=== PATIENT | male | born 1980 | race Caucasian/White ===

== ENCOUNTER → 2018-07-14 | Outpatient (CLI) | payer MEDICARE, MEDICAID ==
--- NOTE | 2018-07-14 13:52 | Diagnostic Imaging Report ---
INDICATION: Lifting injury at work. Lumbar spine. FINDINGS: AP and lateral views of the lumbar spine show mild degenerative disc changes at L1-L2 with slight disc space narrowing. Other intervertebral disc spaces are normal. There are no compression fractures. IMPRESSION: Mild degenerative disc changes at L1-2. Dictated by: Dictated on workstation # [id number]
== END ==
LOC: RAD 11:54
PROVIDERS: ATTEND Family Medicine
DX: S39.92XA Unspecified injury of lower back, initial encounter (principal); M51.36 Other intervertebral disc degeneration, lumbar region; X50.9XXA Other and unspecified overexertion or strenuous movements or postures, initial encounter
CPT/HCPCS: 72100

== ENCOUNTER → 2018-08-24 | Outpatient (CLI) | payer MEDICARE, MEDICAID | LOC: CARD 10:08 | PROVIDERS: ATTEND Nurse Practitioner Family | DX: I51.9 Heart disease, unspecified (principal); R79.89 Other specified abnormal findings of blood chemistry | CPT/HCPCS: 93306 ==

== ENCOUNTER 2019-03-26 12:53 | Emergency (ER) | payer MEDICARE, MEDICAID ==
[~2019-03-26] VITALS: Ht 175 cm; Wt 150.0 kg
--- NOTE | 2019-03-26 12:53 | NUR ---
PT TO ED 7 PER EMS POST CODE. PER EMS, PT WAS TALKING TO GIRLFRIEND ON PHONE WHEN BECAME UNRESPONSIVE. WITNESSED ARREST PER CAREGIVER. PER EMS, NO CPR WAS INITIATED FOR APPROX 5 MINUTES AFTER ARREST UNTIL PPD ARRIVED. PER EMS, UPON PLACING PT ON MONITOR, FOUND PT IN V FIB. SHOCK X1 AT THAT TIME. PT IN PEA, CPR INITIATED, PT INTUBATED PER EMS ET "BREATHING ON HIS OWN". VERSED 5MG ADMINISTERED PER EMS PRIOR TO ARRIVAL TO THIS ED. 1255-VERSED 2MG IV 1257-EKG AT BEDSIDE 1302-ADENOSINE 6MG IV BOLUS 1303-ADENOSINE 12MG IV BOLUS 1306-AMIODARONE 150MG BOLUS 1308-VERSED 5MG IV, NG PLACED TO RT NARE 1310-ABG RT RADIAL, 1L NS UP, DR GUILLORY TO ROOM 1312-18F CALVERT PLACED 1313-AMIODARONE GTT UP AT 1MG/KG/MIN OR 33.3MLS/HR 1314-DIPRIVAN GTT UP 50MCG/KG/MIN OR 45MLS/HR 1318-PT HR 200 BPM, PLANS TO SYNCHRONIZE CARDIOVERT PT 1320-SYNCHRONIZED CARDIOVERSION COMPLETE AT 100J. PT HR 110, SINUS TACH 1322-DR OBRIEN TO ROOM 1330-[facility] PLACED ON STANDBY 1332-[facility] LAUNCHED 1340-LEVOPHED GTT UP AT 0.1MG/KG 1348-COOLING PACKS TO PT PER DR GUILLORY 1353-CENTRAL LINE PLACED TO RT IJ, TRIPLE LUMEN BY MAYANK MCGRATH. 1403-REPORT TO AISSATOU BARROS AT [facility] ICU
[2019-03-26] MEDS ORDERED: SOD CHL BACTER. 10 ML (IV START) VIAL IJ ONE (12:56)
[2019-03-26] MEDS ORDERED: AMIODARONE (OMNICELL DRIP KIT) 150 MG/3 ML IV ONE (12:56)
[2019-03-26] MEDS ORDERED: MIDAZOLAM 5 MG/5 ML (VERSED) VIAL IJ ONE (12:56)
[2019-03-26] MEDS ORDERED: AMIODARONE 450 MG/9 ML (CORDARONE) VIAL IV ONE (12:56)
[2019-03-26] MEDS ORDERED: MAG SULFATE 1 GM/100 ML IV PRE-MIX BAG IV ONE (12:56)
[2019-03-26] MEDS ORDERED: ADENOSINE 6 MG/2 ML (ADENOCARD) VIAL IV ONE (12:56)
[2019-03-26] MEDS ORDERED: NS 1000 ML IV BAG IV ONE (12:56)
[2019-03-26] MEDS ORDERED: D5W 250 ML (EXCEL) BAG IV ONE (12:56)
[2019-03-26] MEDS ORDERED: PROPOFOL DRIP (ICU) 100 ML IV ONE ×2 (13:05→14:07)
[2019-03-26 13:19] LABS: BASOPHILS % (AUTO) 0 % (0-10); EOSINOPHILS % (AUTO) 0 % (0-10); HEMATOCRIT 40 % (40-54); HEMOGLOBIN 12.5 G/DL (13.3-17.7); LYMPHOCYTES # (AUTO) 3.9 X 10^3 (1.0-4.0); LYMPHOCYTES % (AUTO) 23 % (12-44); MEAN CORPUSCULAR HEMOGLOBIN 30 PG (25-34); MEAN CORPUSCULAR HGB CONC 31 G/DL (32-36); MEAN CORPUSCULAR VOLUME 96 FL (80-99); MONOCYTES # (AUTO) 2.9 X 10^3 (0.0-1.0); MONOCYTES % (AUTO) 17 % (0-12); NEUTROPHILS # (AUTO) 10.4 X 10^3 (1.8-7.8); NEUTROPHILS % (AUTO) 60 % (42-75); PLATELET COUNT 279 10^3/uL (130-400); WHITE BLOOD COUNT 17.3 10^3/uL (4.3-11.0)
[2019-03-26 13:20] LABS: ABG BASE EXCESS -5.9 MMOL/L (-2.5-2.5); ABG OXYGEN SATURATION 98 % (94-100); ABG PCO2 57 MMHG (35-45); ABG PO2 139 MMHG (79-93); ABG TCO2 22.4 MMOL/L (21.0-31.0)
[2019-03-26 13:22] LABS: ALLENS TEST YES-POS; INSPIRED O2 100%; PATIENT TEMP 38.1; VENTILATOR YES
[2019-03-26 13:24] LABS: PROTHROMBIN TIME PATIENT 13.7 SEC (12.2-14.7)
[2019-03-26] MEDS ORDERED: NS (IVPB) 250 ML ONE (13:30)
[2019-03-26] MEDS ORDERED: NOREPINEPHRINE 4 MG/4 ML (LEVOPHED) AMP IV ONE (13:30)
[2019-03-26] MEDS ORDERED: POTASSIUM CL 10MEQ/50ML IVPB 50 ML IV ONE ×2 (13:34→14:00)
[2019-03-26 13:35] LABS: ALANINE AMINOTRANSFERASE 41 U/L (0-55); ALBUMIN 4.1 GM/DL (3.2-4.5); ALKALINE PHOSPHATASE 56 U/L (40-136); BILIRUBIN,TOTAL 0.7 MG/DL (0.1-1.0); BUN/CREATININE RATIO 7; CALCIUM 8.8 MG/DL (8.5-10.1); CARBON DIOXIDE 17 MMOL/L (21-32); CHLORIDE 99 MMOL/L (98-107); CREATININE SERUM 1.84 MG/DL (0.60-1.30); GFR ESTIMATED 41; GLUCOSE 188 MG/DL (70-105); POTASSIUM 3.6 MMOL/L (3.6-5.0); SODIUM 136 MMOL/L (135-145); TOTAL PROTEIN 7.3 GM/DL (6.4-8.2)
[2019-03-26 13:37] VITALS: BP 80/49
[2019-03-26 13:43] LABS: BAND NEUTROPHILS 6 %; BASOPHILS % (MANUAL) 0 %; EOSINOPHILS % (MANUAL) 0 %; LYMPHOCYTES % (MANUAL) 22 %; MONOCYTES % (MANUAL) 13 %; NEUTROPHILS % (MANUAL) 59 %
[2019-03-26 13:44] LABS: RBC MORPH NORMAL
--- NOTE | 2019-03-26 13:51 | Diagnostic Imaging Report ---
INDICATION: Post code. Respiratory distress. ET tube placement Portable chest shows normal heart size and vascularity. There is right perihilar atelectasis and infiltrates. The left lung is clear. There is no effusion. An ET tube is present in good position. OG tube is in the proximal stomach. IMPRESSION: There is right perihilar atelectasis and infiltrate. Dictated by: Dictated on workstation # [id number]
--- NOTE | 2019-03-26 13:55 | ED CPR ---
HPI-CPR General Chief Complaint: Code Blue Stated Complaint: POST CODE Source of Information: Patient, EMS History of Present Illness Date Seen by Provider: Mar 26, 2019 Time Seen by Provider: 13:51 Initial Comments This 38-year-old white male presents as a cardiac arrest from the field. On radiation protection engineer arrival the patient was in V. fib. He was shocked. His rhythm was a PDA. The patient was intubated. Following intubation the patient had a narrow complex tachycardia. Patient had a palpable blood pressure. He was transported to the emergency department. The patient at the time of his cardiac arrest had been talking to his girlfriend on the telephone. The patient does not have any known significant cardiac history. Allergies and Home Medications Allergies Coded Allergies: No Known Drug Allergies (Unverified , 03/26/19) Patient Home Medication List Home Medication List Reviewed: Yes Review of Systems Review of Systems Constitutional: no symptoms reported EENTM: No Symptoms Reported Respiratory: No Symptoms Reported Cardiovascular: See HPI Gastrointestinal: No Symptoms Reported Genitourinary: No Symptoms Reported Musculoskeletal: no symptoms reported Skin: no symptoms reported Psychiatric/Neurological: No Symptoms Reported Endocrine: No Symptoms Reported Hematologic/Lymphatic: No Symptoms Reported Past Ekjhwok-Cvwnqu-Janzby Hx Past Med/Social Hx: Reviewed Nursing Past Med/Soc Hx Physical Exam Vital Signs Vital Signs - First Documented 03/26/19 13:37 Pulse 111 Resp 27 Pulse Ox 99 FiO2 90 Capillary Refill : Height, Weight, BMI Height: '" Weight: lbs. oz. kg; BMI Method: General Appearance: Other (patient is intubated and unresponsive.) HEENT: Normal ENT Inspection Neck: Normal Inspection Respiratory: Decreased Breath Sounds Cardiovascular: Tachycardia Gastrointestinal: Abnormal Bowel Sounds (no bowel sounds were noted an NG tube was passed and was determined to be in the stomach), Distended Extremity: Normal Inspection Neurologic/Psychiatric: Other Skin: Normal Color (patient intermittently moves 4 extremities.) Procedures/Interventions Date of ETT Placement: Mar 26, 2019 Time of ETT Placement: 1300 Tube Size: 8.00 Progress/Results/Core Measures Results/Orders Lab Results Laboratory Tests Test 03/26/19 13:00 03/26/19 13:10 Range/Units White Blood Count 17.3 H 4.3-11.0 10^3/uL Red Blood Count 4.13 L 4.35-5.85 10^6/uL Hemoglobin 12.5 L 13.3-17.7 G/DL Hematocrit 40 40-54 % Mean Corpuscular Volume 96 80-99 FL Mean Corpuscular Hemoglobin 30 25-34 PG Mean Corpuscular Hemoglobin Concent 31 L 32-36 G/DL Red Cell Distribution Width 14.0 10.0-14.5 % Platelet Count 279 130-400 10^3/uL Mean Platelet Volume 9.0 7.4-10.4 FL Neutrophils (%) (Auto) 60 42-75 % Lymphocytes (%) (Auto) 23 12-44 % Monocytes (%) (Auto) 17 H 0-12 % Eosinophils (%) (Auto) 0 0-10 % Basophils (%) (Auto) 0 0-10 % Neutrophils # (Auto) 10.4 H 1.8-7.8 X 10^3 Lymphocytes # (Auto) 3.9 1.0-4.0 X 10^3 Monocytes # (Auto) 2.9 H 0.0-1.0 X 10^3 Eosinophils # (Auto) 0.0 0.0-0.3 10^3/uL Basophils # (Auto) 0.0 0.0-0.1 10^3/uL Neutrophils % (Manual) 59 % Lymphocytes % (Manual) 22 % Monocytes % (Manual) 13 % Eosinophils % (Manual) 0 % Basophils % (Manual) 0 % Band Neutrophils 6 % Blood Morphology Comment NORMAL Prothrombin Time 13.7 12.2-14.7 SEC INR Comment 1.0 0.8-1.4 Activated Partial Thromboplast Time 27 24-35 SEC Sodium Level 136 135-145 MMOL/L Potassium Level 3.6 3.6-5.0 MMOL/L Chloride Level 99 98-107 MMOL/L Carbon Dioxide Level 17 L 21-32 MMOL/L Anion Gap 20 H 5-14 MMOL/L Blood Urea Nitrogen 13 7-18 MG/DL Creatinine 1.84 H 0.60-1.30 MG/DL Estimat Glomerular Filtration Rate 41 BUN/Creatinine Ratio 7 Glucose Level 188 H 70-105 MG/DL Calcium Level 8.8 8.5-10.1 MG/DL Corrected Calcium 8.7 8.5-10.1 MG/DL Magnesium Level 2.0 1.6-2.4 MG/DL Total Bilirubin 0.7 0.1-1.0 MG/DL Aspartate Amino Transf (AST/SGOT) 44 H 5-34 U/L Alanine Aminotransferase (ALT/SGPT) 41 0-55 U/L Alkaline Phosphatase 56 40-136 U/L Myoglobin 299.0 H 10.0-92.0 NG/ML Troponin I < 0.028 <0.028 NG/ML B-Type Natriuretic Peptide 51.5 <100.0 PG/ML Total Protein 7.3 6.4-8.2 GM/DL Albumin 4.1 3.2-4.5 GM/DL Blood Gas Puncture Site R RAD Blood Gas Patient Temperature 38.1 Arterial Blood pH 7.20 *L 7.37-7.43 Arterial Blood Partial Pressure CO2 57 H 35-45 MMHG Arterial Blood Partial Pressure O2 139 H 79-93 MMHG Arterial Blood HCO3 21 L 23-27 MMOL/L Arterial Blood Total CO2 22.4 21.0-31.0 MMOL/L Arterial Blood Oxygen Saturation 98 94-100 % Arterial Blood Base Excess -5.9 L -2.5-2.5 MMOL/L Stephan Test YES-POS Blood Gas Ventilator Setting YES Blood Gas Inspired Oxygen 100% My Orders Orders - JAILYN AGUILAR MD Propofol Drip (Icu) (Diprivan Drip (Icu) (03/26/19 13:05) Arterial Blood Gas (03/26/19 13:13) Ns (Ivpb) (Sodium Chloride 0.9%) (03/26/19 13:30) Norepinephrine (Levophed) (03/26/19 13:30) Potassium Cl 10meq/50ml Ivpb (Kcl 10 Meq (03/26/19 13:34) Vital Signs/I&O 03/26/19 13:37 Pulse 111 Resp 27 Pulse Ox 99 FiO2 90 Progress Progress Note : Time: 13:55 Progress Note The patient was in a narrow complex tachycardia with a rate of 200. Patient was given doubling doses of adenosine (6 mg, 12 mg) with no effective response. Patient was subsequently given 150 mg of amiodarone as a bolus and placed on an amiodarone drip and a milligram per minute. The patient's blood pressure which had been greater than 200 rapidly decreased to under 100. The patient's narrow complex tachycardia was cardioverted in a synchronized fashion. The patient converted to a sinus rhythm with a rate of approximately 100. The initial EKG demonstrated a narrow complex tachycardia. Subsequent EKG after synchronized cardioversion demonstrated a sinus rhythm with no acute current of injury. Bedside ultrasound demonstrated an EF that was felt to be approximately 40 percent. There was questionable small amount of pericardial fluid present. Because we have no ICU beds at was transferred to [place] to Dr. Keller, cardiology. I'm awaiting a call from the hospital for final arrangements. Levofed drip was established. Central line is being placed prior to transfer. Departure Impression Primary Impression: Cardiac arrest Disposition: XFER SHT-TRM HOSP Condition: Improved Transfer Transfer Reason: Diversion Time Spoke to Accepting Phy: 14:[address] Keller at [place] Transfer Time: 14:00 Transfer Facility: [facility] Method of Transfer: Air Departure-Patient Inst. Referrals: HECTOR NAPIER MD (PCP/Family) Primary Care Physician JAILYN AGUILAR MD Mar 26, 2019 13:55
[2019-03-26] MEDS ORDERED: MAGNESIUM 1 GM/100 ML IVPB 100 ML IV ONE (14:00)
--- NOTE | 2019-03-26 14:18 | Diagnostic Imaging Report ---
INDICATION: Central line placement. FINDINGS: Since the earlier exam there has been placement of an IJ line from the right. Tip is in the mid SVC. There is no pneumothorax or other change from the earlier exam. IMPRESSION: Line tip is in the SVC. Dictated by: Dictated on workstation # [id number]
--- NOTE | 2019-03-26 14:21 | NUR ---
KCL ET MAGNESIUM GTTS UP PER [facility] FLIGHT CREW AT THIS TIME.
[2019-03-26 14:47] VITALS: BP 103/47
--- NOTE | 2019-03-26 14:47 | NUR ---
PT TRANSFERED FROM [facility] TO [facility] C[facility] W/ STAFF ASSIST X5 W/O INCIDENT.
--- NOTE | 2019-03-26 14:54 | Procedure/Intervention Note ---
Procedures/Interventions Lumen: triple Position: internal jugular (R) Anesthesia: Lidocaine Volume Anesthetic (ccs): 5 Complications: none Post Position: sutured, good blood return, position confirmed w/ CXR Date of ETT Placement: Mar 26, 2019 Time of ETT Placement: 1300 Tube Size: 8.00 ABIMAEL RILEY APRN Mar 26, 2019 14:54
--- NOTE | 2019-03-26 17:18 | Consultation-Cardiology ---
HPI-Cardiology Cardiology Consultation: Date of Consultation 03/26/19 Date of Admission Attending Physician Admitting Physician Edita Lucero MD Consulting Physician Rola ALBERT MD HPI: Time Seen by a Provider: 13:00 Chief Complaint: Postcode This is a 38-year-old gentleman for which I was called urgently to the emergency department. 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 No significant post cardiac history. He was found to be unresponsive and downtime without CPR is 5 minutes or more. When EMS got to the patient he was in ventricular fibrillation. Was defibrillated. Pulseless electrical activity. The patient was intubated in the field. ACLS was started. Pulse was noted. In the ER the patient had narrow complex tachycardia and was given adenosine. We do not have rest of the history. Review of Systems-Cardiology Review of Systems Constitutional: As described under HPI Eyes: As described under HPI Ears/Nose/Throat: As described under HPI Respiratory: As described under HPI Cardiovascular: As described under HPI Gastrointestinal: As described under HPI Genitourinary: As described under HPI Musculoskeletal: As describe under HPI Skin: As described under HPI Psychiatric/Neurological: As described under HPI Hematologic: As described under HPI WVW-Lxdvaj-Addeci Hx Patient Social History Recent Foreign Travel: No Recent Infectious Disease Expo: No Hospitalization with Isolation: Airborne Past Medical History PMH As described under Assessment. Allergies and Home Medications Allergies Coded Allergies: No Known Drug Allergies (Unverified , 03/26/19) Patient Home Medication List Home Medication List Reviewed: Yes Physical Exam-Cardiology Physical Exam Vital Signs/I&O Capillary Refill : Less Than 3 Seconds Constitutional: other (intubated/ventilated) HEENT: PERRL; No discharge; hearing is well preserved, oral hygience is good; No ulceration, No xanthelasmas are seen Neck: No carotid bruit; carotid pulses are 2 + bilaterally Respiratory: chest is bilaterally symmetric, lungs clear to auscultation Cardiovascular: regular rate-rhythm, tachycardia, S1 and S2 Gastrointestinal: soft, distended, audible bowel sounds; No spleenomegaly Rectal: deferred Extremities: No clubbing, No cyanosis; no lower extremity edema bilateral; No significant edema Neurologic/Psychiatric: other (and intubated/ventilated.) Skin: No rash, No ulcerations Data Review Labs ECG Impression ECG Comment Narrow complex tachycardia with cycle length variability could be atrial fibrillation with RVR versus SVT. A/P-Cardiology Assessment/Admission Diagnosis Post cardiac arrest, Mild mental retardation, Numerous psychotropic medications Plan Ventricular fibrillation, defibrillated to pulseless electrical activity in the field. ACLS done. Intubated. In the ER narrow complex tachycardia with cycle length irregularity. Adenosine no response. Was given amiodarone. Hypotensive, therefore synchronized cardioversion was done was converted the patient to sinus tachycardia. QTc interval was not prolonged. No ST segment changes. Down time over 5 minutes. Patient was on amiodarone. Levophed was started. I did a bedside echocardiogram, poor windows. And I performed it with an ultrasound machine. Therefore suboptimal pictures. LVEF seems to be 35-40 percent with no significant pericardial effusion. However the patient will need to have an official echocardiogram. Therapeutic hypothermia recommended. Patient is being transferred to [facility] since we're on ICU diversion. I spent over 30 minutes at the bedside of the patient actively involved in taking care of the patient. Critically ill patient. Thank you for your consultation. Please call me if you have any questions. Charlene Albert MD, FACP, FACC, FSCAI, FHRS, CCDS Interventional Cardiology Cardiac Electrophysiology Vascular Medicine and Endovascular Interventions Rola ALBERT MD Mar 26, 2019 17:18
== END 2019-03-26 14:47 | disposition short-term general hospital (02) ==
LOC: EDUNIT# 12:55 → ER 12:55
DX: I46.9 Cardiac arrest, cause unspecified (principal)
CPT/HCPCS: 36415; 71045; 80053; 82805; 83735; 83874; 83880; 84484; 85007; 85027; 85610; 85730; 93005; 96374; 96375

== ENCOUNTER → 2022-05-02 | Outpatient (CLI) | payer MEDICARE, MEDICAID | LOC: CARD 08:05 | PROVIDERS: ATTEND Family Medicine | DX: R60.0 Localized edema (principal); I51.7 Cardiomegaly | CPT/HCPCS: 93306 ==